=== PATIENT | male | born 1965 | race African-American/Black ===

== ENCOUNTER 2021-02-02 12:22 | Emergency (ER) | payer SELFPAY ==
[2021-02-02 18:51] LABS: SARS-CoV-2 PCR by NAA DETECTED (NotDetected)
== END 2021-02-02 13:43 | disposition home or self-care (01) ==
LOC: ERS 12:22
DX: N30.91 Cystitis, unspecified with hematuria (principal); R16.0 Hepatomegaly, not elsewhere classified; I10 Essential (primary) hypertension; F17.210 Nicotine dependence, cigarettes, uncomplicated
CPT/HCPCS: 99283; U0003; U0005